=== PATIENT | female | born 1970 ===

== ENCOUNTER 2021-04-05 10:57 | Emergency (ER) | payer SELFPAY ==
[~2021-04-05] VITALS: Ht 162.6 cm; Wt 114.2 kg
[2021-04-05 11:04] VITALS: BP 125/91; TEMP 98.8
[2021-04-05 12:02] LABS: BASO % 0.5 % (0.0-2.0); EOS # 0.2 (0.0-0.7); EOS % 2.7 % (0-4.0); GRAN # 2.3 (1.4-6.5); GRAN % 38.7 % (42.2-75.2); HEMATOCRIT 39.2 % (37.0-47.0); HEMOGLOBIN 13.5 g/dl (12.5-16.0); LYMPH # 3.2 (1.2-3.4); LYMPH % 53.8 % (20.0-51.0); MEAN CELL VOLUME 88 fl (80.0-100.0); MEAN CORPUSCULAR HEMOGLOBIN 30 pg (27.0-31.0); MEAN CORPUSCULAR HGB CONC 34 g/dl (33.0-37.0); MEAN PLATELET VOLUME 10.1 fl (7.4-10.4); MONO # 0.2 (0.1-0.6); MONO % 4.1 % (1.7-9.3); PLATELET COUNT 253 K/mm3 (130-400); RED BLOOD COUNT 4.48 M/mm3 (4.10-5.30); REDCELL DISTRIBUTION WIDTH-CV 13.1 % (11.5-14.5)
[2021-04-05 12:18] LABS: ALBUMIN 4.1 gm/dL (3.5-5.0); BILIRUBIN,TOTAL 0.4 mg/dL (0.0-1.0); C-REACTIVE PROTEIN 1.3 mg/dL (0.0-0.9); CALCIUM 9.4 mg/dL (8.4-10.2); CREATININE, serum 0.26 (0.52-1.25); POTASSIUM 3.9 mmol/L (3.4-5.0); TOTAL PROTEIN 7.4 gm/dL (6.4-8.2)
[2021-04-05] MEDS ORDERED: DOXYCYCLINE 10100 MG PO (13:23)
[2021-04-05 13:30] VITALS: PULSE 88
== END 2021-04-05 13:30 | disposition home or self-care (01) ==
LOC: COL.ER 10:57
PROVIDERS: Nurse Practitioner
DX: S93.402A Sprain of unspecified ligament of left ankle, initial encounter (principal); E11.621 Type 2 diabetes mellitus with foot ulcer; X58.XXXA Exposure to other specified factors, initial encounter

== ENCOUNTER 2021-05-15 15:16 | Inpatient (IN) | payer SELFPAY ==
[~2021-05-15] VITALS: Ht 162.7 cm; Wt 97.7 kg
[~2021-05-15 15:16] MED LIST: DOXYCYCLINE 10100 MG PO
[2021-05-15 16:59] LABS: BASO % 0.2 % (0.0-2.0); EOS % 0.4 % (0-4.0); GRAN # 6.6 (1.4-6.5); GRAN % 78.3 % (42.2-75.2); LYMPH # 1.2 (1.2-3.4); MEAN CELL VOLUME 88 fl (80.0-100.0); MEAN CORPUSCULAR HGB CONC 33 g/dl (33.0-37.0); MEAN PLATELET VOLUME 10.7 fl (7.4-10.4); MONO # 0.6 (0.1-0.6); MONO % 6.5 % (1.7-9.3); PLATELET COUNT 413 K/mm3 (130-400); RED BLOOD COUNT 3.39 M/mm3 (4.10-5.30); REDCELL DISTRIBUTION WIDTH-CV 13.7 % (11.5-14.5)
[2021-05-15 17:03] LABS: HEMATOCRIT 29.8 % (37.0-47.0); HEMOGLOBIN 9.8 g/dl (12.5-16.0); MEAN CORPUSCULAR HEMOGLOBIN 29 pg (27.0-31.0)
[2021-05-15 17:54] LABS: ALBUMIN 3.3 gm/dL (3.5-5.0); BILIRUBIN,TOTAL 0.3 mg/dL (0.0-1.0); CALCIUM 8.2 mg/dL (8.4-10.2); CREATININE, serum 0.38 (0.52-1.25); POTASSIUM 3.7 mmol/L (3.4-5.0); TOTAL PROTEIN 6.9 gm/dL (6.4-8.2)
[2021-05-15 19:18] LABS: IRON,SERUM 11 ug/dL (35-150)
[2021-05-15 19:28] LABS: TOTAL IRON BINDING CAPACITY 211 ug/dL (265-497)
[2021-05-15 19:40] LABS: INR 1.4 (0.8-3.0); PROTHROMBIN TIME 15.4 SECONDS (9.7-12.8)
--- NOTE | 2021-05-15 23:00 | NUR ---
RECEIVED PATIENT FROM ED ON A CART.PATIENT IS AOX4.DENIES PAIN.PATIENT IS A SBA.A KNOWN DIABETIC NOT ON MEDS.PATIENTS STATES THAT SHE MANAGES DM WITH DIET.PATIENT HAS NO HOME MEDS.ADMISSION ORIENTATION DONE.PATIENT HAS AN ORDER FOR WOUND CULTURE.THE ULCER ON THE FOOT HAS A DRY SCAB.WOUND CULTURE SPECIMEN NOT OBTAINED.SAFETY MEASURES IN PLACE.NO OTHER NEEDS AT THIS TIME.
[2021-05-15 23:22] VITALS: BP 120/44; PULSE 92; TEMP 99.7
[2021-05-16 03:59] VITALS: BP 144/77; PULSE 93; TEMP 98.6
--- NOTE | 2021-05-16 05:06 | NUR ---
PATIENT HAD A CALM NIGHT.REPORTED OF PAIN.MEDS GIVEN PER OCT.SAFETY MEASURES IN PLACE.NO OTHER NEEDS AT THIS TIME.
[2021-05-16 07:30] LABS: BASO % 0.3 % (0.0-2.0); EOS # 0.1 (0.0-0.7); EOS % 1.1 % (0-4.0); GRAN # 4.5 (1.4-6.5); GRAN % 63.2 % (42.2-75.2); LYMPH # 1.9 (1.2-3.4); LYMPH % 26.9 % (20.0-51.0); MEAN CELL VOLUME 89 fl (80.0-100.0); MEAN CORPUSCULAR HGB CONC 32 g/dl (33.0-37.0); MONO # 0.6 (0.1-0.6); MONO % 7.9 % (1.7-9.3); PLATELET COUNT 371 K/mm3 (130-400); RED BLOOD COUNT 2.79 M/mm3 (4.10-5.30); REDCELL DISTRIBUTION WIDTH-CV 13.6 % (11.5-14.5)
[2021-05-16 07:33] LABS: HEMATOCRIT 24.8 % (37.0-47.0); MEAN CORPUSCULAR HEMOGLOBIN 29 pg (27.0-31.0)
[2021-05-16 07:41] LABS: CREATININE, serum 0.3 (0.52-1.25); POTASSIUM 3.7 mmol/L (3.4-5.0)
[2021-05-16 07:50] VITALS: BP 115/54; PULSE 85; TEMP 98.1
--- NOTE | 2021-05-16 07:50 | NUR ---
Patient in bed resting. Alert and oriented x 3. Assessment complete. Denies pain at this time. Edema and tenderness to left foot. Small scab over lateral aspect of ankle, scab noted to ball of foot. IV to left forarm. INT to right forarm without complications. Denies needs at this time.
--- NOTE | 2021-05-16 08:14 | NUR ---
Patient to MRI by wheelchair.
[2021-05-16 10:51] LABS: COLLECTION METHOD CLEAN CATCH
[2021-05-16 10:57] LABS: MUCOUS Present /lpf; PH 6 (5-8); URINE APPEARANCE Hazy; URINE BACTERIA None Seen /hpf; URINE BILIRUBIN Negative (NEGATIVE); URINE BLOOD 1+ (NEGATIVE); URINE COLOR Yellow; URINE GLUCOSE 3+ (NEGATIVE); URINE KETONE Negative (NEGATIVE); URINE LEUKOCYTE ESTERASE Trace (NEGATIVE); URINE NITRATE Negative (NEGATIVE); URINE PROTEIN(semi-quant) 2+ (NEGATIVE); URINE RBC 0-2 /hpf; URINE UROBILINOGEN Negative (NEGATIVE)
--- NOTE | 2021-05-16 11:33 | NUR ---
SW met with patient at b/s about her d/c plan/needs. Patient states she is self-pay and has no PCP. Patient shares an apartment in [place] with her ex- (Gilbert Millard). There is one step to enter and she uses a cane and/or a boot to ambulate; otherwise is independent with ADLs. She works part-time and uses [facility] for medications. She reports she has no difficulties affording or obtaining them. This worker discussed DPOA to complete while hospitalized and patient would like to designate her sister, Ora Estrella as her POA. Form was given to patient and will complete with patient when her sister arrives. Patient is also interested in designating a PCP. This worker contacted financial counselor, Robert, and she plans to see patient to begin the process. *Anticipate patient will d/c home
[2021-05-16 11:50] VITALS: BP 100/66; PULSE 95; TEMP 98.3
--- NOTE | 2021-05-16 12:03 | NUR ---
Contacted PICC team about picc line placement.
[2021-05-16 15:46] VITALS: BP 132/63; PULSE 86; TEMP 98.9
--- NOTE | 2021-05-16 18:24 | NUR ---
Patient doing well throughout the day. Has been up to restroom with SBA. PICC line with fluids and antibiotics infusing at this time. Patient denies pain at this time. Will report off to night auditor.
[2021-05-16 19:11] VITALS: BP 131/80; PULSE 133; TEMP 98.3
--- NOTE | 2021-05-16 21:30 | NUR ---
Pt. sitting up in bed at this time. Pt. is A&OX3, assessment complete. PICC to rt. upper arm patent, IV fluids and abx. infusing per orders. Pt. denies pain or other needs, call light within reach.
[2021-05-17] VITALS (7 sets, daily range): BP systolic 103–146; BP diastolic 68–90; PULSE 50–143; TEMP 97.9–981.4
--- NOTE | 2021-05-17 18:27 | NUR ---
Patient doing well throughout the day. Denies pain at this time. Patient up independently to restroom. Denies further needs at this time. Will report off to type rolling machine operator.
--- NOTE | 2021-05-17 20:50 | NUR ---
Pt. sitting up at bedside at this time. Pt. is A&OX3, assessment complete. PICC to rt. upper arm patent. Pt. reports pain to lt. foot at a 6 on pain scale at this time. Giving pain meds per orders. Pt. denies further needs, call light within reach.
[2021-05-18] VITALS (8 sets, daily range): BP systolic 90–128; BP diastolic 59–89; PULSE 62–142; TEMP 98–98.5
[2021-05-18 07:48] LABS: BASO % 0.4 % (0.0-2.0); EOS # 0.1 (0.0-0.7); EOS % 1.3 % (0-4.0); GRAN # 4.8 (1.4-6.5); GRAN % 64.7 % (42.2-75.2); LYMPH # 1.9 (1.2-3.4); LYMPH % 25.1 % (20.0-51.0); MEAN CELL VOLUME 92 fl (80.0-100.0); MEAN CORPUSCULAR HGB CONC 32 g/dl (33.0-37.0); MEAN PLATELET VOLUME 10.3 fl (7.4-10.4); MONO # 0.6 (0.1-0.6); MONO % 8.2 % (1.7-9.3); PLATELET COUNT 410 K/mm3 (130-400); RED BLOOD COUNT 2.75 M/mm3 (4.10-5.30); REDCELL DISTRIBUTION WIDTH-CV 14.2 % (11.5-14.5)
[2021-05-18 07:55] LABS: HEMATOCRIT 25.3 % (37.0-47.0); MEAN CORPUSCULAR HEMOGLOBIN 29 pg (27.0-31.0)
[2021-05-18 08:06] LABS: CALCIUM 7.9 mg/dL (8.4-10.2); CREATININE, serum 1.4 (0.52-1.25); POTASSIUM 4.2 mmol/L (3.4-5.0)
--- NOTE | 2021-05-18 10:00 | NUR ---
Patient alert and oriented, answers questions appropriately. See assessment. LLE with redness, warmth and edema noted from toes to knee. Localized area of increased redness and edema noted to heel, skin intact. Patient states has some pain to LLE, but mostly when she doesn't have it elevated, otherwise has no pain. No c/o at this time.
--- NOTE | 2021-05-18 21:10 | NUR ---
Pt. sitting up in bed. Pt. is A&OX3, assessment complete. PICC to rt. upper arm patent. Pt. reports pain at a 6 on pain scale, will give pain meds per orders. Pt. also having dry heaves and feels a bit nauseous. Will give nausea meds per orders. Pt. denies further needs, call light within reach.
[2021-05-19 03:37] VITALS: BP 113/82; PULSE 86; TEMP 97.9
[2021-05-19 04:52] LABS: BASO % 0.6 % (0.0-2.0); EOS # 0.1 (0.0-0.7); EOS % 1.6 % (0-4.0); GRAN # 4.3 (1.4-6.5); GRAN % 62.2 % (42.2-75.2); LYMPH % 28.2 % (20.0-51.0); MEAN CELL VOLUME 89 fl (80.0-100.0); MEAN CORPUSCULAR HGB CONC 32 g/dl (33.0-37.0); MEAN PLATELET VOLUME 9.6 fl (7.4-10.4); MONO # 0.5 (0.1-0.6); PLATELET COUNT 445 K/mm3 (130-400); RED BLOOD COUNT 3.12 M/mm3 (4.10-5.30); REDCELL DISTRIBUTION WIDTH-CV 14.2 % (11.5-14.5)
[2021-05-19 04:54] LABS: HEMATOCRIT 27.8 % (37.0-47.0); MEAN CORPUSCULAR HEMOGLOBIN 29 pg (27.0-31.0)
[2021-05-19 05:11] LABS: CALCIUM 7.2 mg/dL (8.4-10.2); CREATININE, serum 1.85 (0.52-1.25); POTASSIUM 4.1 mmol/L (3.4-5.0)
[2021-05-19 07:33] VITALS: BP 100/83; PULSE 121; TEMP 97.6
--- NOTE | 2021-05-19 08:00 | NUR ---
Patient in bed resting. Alert and oriented x 3. Assessment complete. Patient denies pain at this time. States she is having mild nausea this AM, no emisis. Edema to RLE +2 pitting. Patient states leg is looking better than prevoius days. Patient denies additional needs at this time.
--- NOTE | 2021-05-19 09:49 | NUR ---
Contacted Yanelis Beth RE weight bearing status and using boot. Recomended NWB to right foot but if patient is going to be up and moving must wear boot. Updated PT.
[2021-05-19 12:15] VITALS: BP 106/75; PULSE 85; TEMP 97.8
--- NOTE | 2021-05-19 15:20 | NUR ---
The PA notified BETSY that the patient is going to need 6 weeks of IV antibiotics. IV Vanc and Cefepime, twice a day. The patient will also need primary care and PT is recommending a wheelchair. The patient is self pay. BETSY met with the patient to review d/c plans and to address the above. The patient states that she plans on returning back home with her ex-. The patient is agreeable with getting the IV antibiotics in the [facility], due to being self pay. The patient states that she will have transporation to the [facility]. She reports that she still drives and that her sister and ex- can also help, if needed. BETSY notified Jed in the [facility]. Jed plans to start an account on the patient for her to start her antibiotics in the [facility] on Wednesday. The patient was open to getting set up at [facility] for primary care. BETSY contacted and secured the patient an appointment at [facility] on Wednesday, 05/26, at 0840. The patient will need to go to [facility] prior to her appointment to cigar packer and picker their paperwork to fill out. BETSY to inform the patient. BETSY notified the community relations director of the appointment. BETSY also discussed PT's recommendation for a wheelchair. The patient states that she plans on going back to work at [employer] upon discharge, so will not use a wheelchair there. She reports that she has one step to get into her home and would not be able to get the wheelchair up that. The patient reports that her boot will keep her protected. She reports that her father has crutches and a wheelchair that she can use, if needed. BETSY discussed speaking to her landlord about installing a wheelchair ramp. The patient states that she will talk to her landlord about this. The patient had no other questions or concerns for BETSY. BETSY will need to fax the patient's records and orders to [facility].
[2021-05-19 16:05] VITALS: BP 105/66; PULSE 85; TEMP 97.8
--- NOTE | 2021-05-19 19:04 | NUR ---
Patient doing well today, showered independently. Educated patient on use of cam boot when she is up out of bed. Picc line with fluids infusing per orders to SHEREEN. Pain medications given this afternoon for foot pain. Denies further needs at this time. Reported off to rn shift mgr.
[2021-05-19 19:40] VITALS: BP 103/62; PULSE 67; TEMP 98.2
[2021-05-20 03:21] LABS: MEAN CELL VOLUME 90 fl (80.0-100.0); MEAN CORPUSCULAR HGB CONC 32 g/dl (33.0-37.0); MEAN PLATELET VOLUME 9.7 fl (7.4-10.4); RED BLOOD COUNT 3.29 M/mm3 (4.10-5.30); REDCELL DISTRIBUTION WIDTH-CV 14.4 % (11.5-14.5)
[2021-05-20 03:22] LABS: HEMATOCRIT 29.5 % (37.0-47.0); HEMOGLOBIN 9.3 g/dl (12.5-16.0); MEAN CORPUSCULAR HEMOGLOBIN 28 pg (27.0-31.0); PLATELET COUNT 554 K/mm3 (130-400)
[2021-05-20 03:33] LABS: CALCIUM 7.7 mg/dL (8.4-10.2); CREATININE, serum 2.2 (0.52-1.25); POTASSIUM 4.3 mmol/L (3.4-5.0)
[2021-05-20 05:00] VITALS: BP 106/74; TEMP 98.1
[2021-05-20 07:48] VITALS: BP 104/69; PULSE 90; TEMP 97.6
--- NOTE | 2021-05-20 08:00 | NUR ---
Patient in sitting on edge of bed. Alert and oriented x 3. Assessment complete. Denies pain at this time. CAM boot to LLE. Patient states she would like to talk to ortho about amputation again today, notified Yanelis CHAPMAN. PICC line to SHEREEN without complications, fluids infusing per orders. Denies further needs at this time.
[2021-05-20 11:19] LABS: COLLECTION METHOD CLEAN CATCH
[2021-05-20 11:44] LABS: MUCOUS Present /lpf; PH 6 (5-8); SQUAMOUS EPITHELIAL None Seen /hpf; URINE APPEARANCE Cloudy; URINE BACTERIA None Seen /hpf; URINE BILIRUBIN Negative (NEGATIVE); URINE BLOOD 1+ (NEGATIVE); URINE COLOR Yellow; URINE GLUCOSE Negative (NEGATIVE); URINE KETONE Negative (NEGATIVE); URINE LEUKOCYTE ESTERASE 3+ (NEGATIVE); URINE NITRATE Positive (NEGATIVE); URINE PROTEIN(semi-quant) Negative (NEGATIVE); URINE UROBILINOGEN Negative (NEGATIVE)
[2021-05-20 11:50] VITALS: BP 101/72; PULSE 58; TEMP 98
[2021-05-20 16:00] VITALS: BP 127/98; PULSE 90; TEMP 97.8
--- NOTE | 2021-05-20 16:49 | NUR ---
Contacted oJdi WOOD, unable to collect fractionated urine due to patient not voiding since early this AM. Concern for decreased urine output. Hat placed in toilet to collect urine this AM. Will monitor.
--- NOTE | 2021-05-20 17:20 | NUR ---
Contacted Dr. Wilhelm, Bladder scanned patient for >700 ml of urine. New order for straight cath.
--- NOTE | 2021-05-20 18:06 | NUR ---
Patient doing well throughout the day. Has been up to restroom independently with cam boot in place. PICC line with fluids infusing at this time. Patient was able to void at this time. Denies further needs at this time.
--- NOTE | 2021-05-20 18:08 | NUR ---
Will report off to cnc machinist 2nd shift.
[2021-05-20 18:13] LABS: CREATININE, serum 2.45 (0.52-1.25)
[2021-05-20 18:51] LABS: FRACTIONAL EXCRETION OF NA+ 0.6 %
[2021-05-20 18:56] VITALS: BP 108/59; PULSE 108; TEMP 98.7
[2021-05-21] VITALS (11 sets, daily range): BP systolic 93–131; BP diastolic 59–101; PULSE 61–120; TEMP 97.7–98.8
[2021-05-21 05:52] LABS: HEMATOCRIT 27.5 % (37.0-47.0); HEMOGLOBIN 8.7 g/dl (12.5-16.0); MEAN CELL VOLUME 90 fl (80.0-100.0); MEAN CORPUSCULAR HEMOGLOBIN 29 pg (27.0-31.0); MEAN CORPUSCULAR HGB CONC 32 g/dl (33.0-37.0); MEAN PLATELET VOLUME 9.8 fl (7.4-10.4); PLATELET COUNT 430 K/mm3 (130-400); RED BLOOD COUNT 3.05 M/mm3 (4.10-5.30); REDCELL DISTRIBUTION WIDTH-CV 14.5 % (11.5-14.5)
[2021-05-21 06:07] LABS: CALCIUM 7.5 mg/dL (8.4-10.2); CREATININE, serum 2.43 (0.52-1.25); POTASSIUM 4.5 mmol/L (3.4-5.0)
--- NOTE | 2021-05-21 07:00 | NUR ---
Report received from program proposals coordinator nurse. Pt resting in bed, denies needs, will continue to monitor.
--- NOTE | 2021-05-21 07:46 | NUR ---
Assessment charted. Pt nauseated, states for last 3 days this has happenedi n am then it subsides. PRN nausea and pain pill provided. PICC to SHEREEN flushes well and good blood return. Pt is alert and oriented, discussed POC and pt wants to pursue antibiotics for now. LLE red, heel ucler is inflammed and area is scabbed. pain is 7/10 to heel. Will continue to monitor.
--- NOTE | 2021-05-21 09:42 | NUR ---
Upon assessing this am noticed HR fast and irregular, called hospitalist Saray and recieved orders for EKG and telemetry. Called RT, EKG completed and shown to me as Afib RVR, walked to Saray and showed results. Consulted cardiology, called Eneida LICEA with [place]. Spoke to and explained situation, IV metropolol order recieved. Gave meds and explained what is going on with pt, she states she has no s/sx of this. Will continue to monitor.
[2021-05-21 14:43] LABS: PARTIAL THROMBOPLASTIN TIME 33.7 SECONDS (26.0-37.0)
--- NOTE | 2021-05-21 18:09 | NUR ---
Pt up to shower today. Has voided in the shower and once in the toilet after removing hat in toilet because they thought they would have a BM. Pt given PRN pain meds per request over shift. REsting quietly between disturbances. Discussed plan for NPO p midnight and SUSANA/Cardioversion tomorrow. Pt agreeaable. Will give bedside shift report to [facility] nurse who will resuem care.
--- NOTE | 2021-05-21 21:19 | NUR ---
PATIENT IS CALM IN THE ROOM ON HEPARIN DRIP.DENIES PAIN.ASSESSMENT DONE.SAFETY MEASURES IN PLACE.NO OTHER NEEDS AT THIS TIME.
[2021-05-22] VITALS (14 sets, daily range): BP systolic 103–141; BP diastolic 52–98; PULSE 74–143; TEMP 97.4–98.1
--- NOTE | 2021-05-22 03:07 | NUR ---
PATIENT'SMHR RANGING FROM 120-140B/M.NIGHT PROVIDER ORDERED METOPROLOL 50MG STAT SAME GIVEN.
--- NOTE | 2021-05-22 04:47 | NUR ---
PATIENT IS CALM IN THE ROOM.ON TELEMETRY HR NOW ON THE LOW 100S. PATIENT IS NPO FOR SUSANA CARDIOVERSION TODAY.
[2021-05-22 07:27] LABS: MEAN CELL VOLUME 93 fl (80.0-100.0); MEAN CORPUSCULAR HGB CONC 31 g/dl (33.0-37.0); MEAN PLATELET VOLUME 9.9 fl (7.4-10.4); PLATELET COUNT 456 K/mm3 (130-400); RED BLOOD COUNT 3.14 M/mm3 (4.10-5.30); REDCELL DISTRIBUTION WIDTH-CV 14.7 % (11.5-14.5)
[2021-05-22 07:32] LABS: CALCIUM 7.6 mg/dL (8.4-10.2); CREATININE, serum 2.44 (0.52-1.25); MAGNESIUM 2.4 mg/dL (1.6-2.3); POTASSIUM 4.8 mmol/L (3.4-5.0)
[2021-05-22 07:39] LABS: HEMATOCRIT 29.3 % (37.0-47.0); MEAN CORPUSCULAR HEMOGLOBIN 29 pg (27.0-31.0)
--- NOTE | 2021-05-22 09:26 | NUR ---
Pt assessment complete. Pt is sitting up on the side of the bed, she is A/O x4. Her breathing is even and unlabored on RA. Pt denies any SOB. No chest pain or palpitations. POC discussed with patient, she verbalizes understanding. Reports back pain at this time. PRN pain medications administered. Heparin drip infusing per protocol. Call light within reach.
--- NOTE | 2021-05-22 13:08 | NUR ---
The patient will be having her IV antibiotics in the morning. BETSY contacted Fanny in [place] and rescheduled the patient's appointment for 1420 on 05/26. BETSY notified the ammunition components inspector. BETSY followed up with Dinora with financial counseling. Dinora reports that they will be doing a FAA and Medicaid application with the patient. The patient is to have a SUSANA with cardiology today. BETSY to continue to follow.
--- NOTE | 2021-05-22 18:19 | NUR ---
Pt requesting to talk with a doctor, states she wants to move forward with surgery on her foot. Discussed this with Dr. Neal, she reports ADELA Hilario will round on patient tomorrow and orders to hold Warfarin tonight, continue with heparin drip. No further needs at this time. Call light within reach.
--- NOTE | 2021-05-22 21:40 | NUR ---
HEPARIN GTT PAUSED @ 2114 R/T HEP XA. BLOOD DRAWN FROM PICC LINE @ 2129. HEPARIN GTT RESTARTED.
[2021-05-23 03:26] VITALS: BP 139/88; PULSE 74; TEMP 97.8
--- NOTE | 2021-05-23 04:30 | NUR ---
HEPARIN GTT PAUSED FOR 15 MINUTES. BLOOD DRAWN FROM PICC LINE FOR LABS. PICC LINE FLUSHES EASILY, BRISK BLOOD RETURN FROM [place]. HEPARIN GTT RESTARTED.
[2021-05-23 04:44] LABS: HEMATOCRIT 28.4 % (37.0-47.0); MEAN CELL VOLUME 90 fl (80.0-100.0); MEAN CORPUSCULAR HEMOGLOBIN 28 pg (27.0-31.0); MEAN CORPUSCULAR HGB CONC 32 g/dl (33.0-37.0); MEAN PLATELET VOLUME 9.3 fl (7.4-10.4); PLATELET COUNT 409 K/mm3 (130-400); RED BLOOD COUNT 3.17 M/mm3 (4.10-5.30); REDCELL DISTRIBUTION WIDTH-CV 14.8 % (11.5-14.5)
[2021-05-23 04:56] LABS: INR 1.2 (0.8-3.0); PROTHROMBIN TIME 13.8 SECONDS (9.7-12.8)
[2021-05-23 05:00] LABS: CALCIUM 8.5 mg/dL (8.4-10.2); CREATININE, serum 2.58 mg/dL (0.57-1.11); MAGNESIUM 2.4 mg/dL (1.6-2.6); POTASSIUM 4.7 mmol/L (3.5-4.5)
--- NOTE | 2021-05-23 05:40 | NUR ---
CAPS ON PICC LINE CHANGED ET HEPARIN BOLUS GIVEN PER PROTOCOL. BOTH RED ET PURPLE PORTS FLUSH EASILY WITH BRISK BLOOD RETURN. PT DENIES NEEDS @ THIS TIME. CALL LIGHT WITHIN REACH.
[2021-05-23 07:40] VITALS: BP 151/93; PULSE 72; TEMP 97.5
--- NOTE | 2021-05-23 07:53 | NUR ---
Pt assessment complete. Pt is laying in bed upon entry, she is A/O x4. Her breathing is even and unlabored on RA. Pt denies SOB. Pain to back, states this is from laying in bed for too long. NO N/V. POC discussed with patient, surgery to be on Wednesday. No further needs at this time. Call light within reach.
--- NOTE | 2021-05-23 09:55 | NUR ---
BETSY attended clinical rounds. The patient has decided to pursue with the BKA. Ortho plans to take the patient to surgery Wednesday afternoon. The patient is self pay. BETSY consulted IPR Director, Raegan.
[2021-05-23 12:07] VITALS: BP 121/65; PULSE 68; TEMP 98.2
--- NOTE | 2021-05-23 15:50 | NUR ---
Recently received report from VINAYAK Mata. pt resting in bed denies any needs at this time
[2021-05-23 16:12] VITALS: BP 124/79; PULSE 72; TEMP 97.4
[2021-05-23 19:21] VITALS: BP 136/69; PULSE 76; TEMP 98.2
--- NOTE | 2021-05-23 23:02 | NUR ---
PT TELLS THIS NURSE THAT HER SISTER ET HER EX- ARE PLANNING TO COME SEE HER ON WEDNESDAY. EXPLAINED VISITOR POLICY TO PT, IS AGREEABLE TO ONLY HAVING ONE VISIOR. PT STATES THAT ANOTHER DAY THIS PAST WEEK, HER EX- HAD TOLD HER THAT WHEN HE TRIED TO COME SEE HER, THEY WOULDN'T LET HIM COME TO HER ROOM. PT'S EX , ELENA HAQUE IS LISTED PT'S DESIGNATED VISITOR, PT IS TOLD THIS, VERBALIZES UNDERSTANDING. DENIES OTHER NEEDS @ THIS TIME.
[2021-05-23 23:17] VITALS: BP 136/67; PULSE 77; TEMP 98.4
--- NOTE | 2021-05-24 01:36 | NUR ---
BLOOD DRAWN FROM PICC LINE FOR HEP XA LAB. PT RATES PAIN 9/10 WHILE LAYING IN BED. PAIN PILL ADMINISTERED. DENIES OTHER NEEDS. CALL LIGHT WITHIN REACH.
[2021-05-24 03:47] VITALS: BP 152/79; PULSE 88; TEMP 98.5
--- NOTE | 2021-05-24 05:30 | NUR ---
PT IS AWAKENED FOR BLOOD TO BE DRAWN FROM PICC FOR LABS. PT REQUIRES ASSISTANCE TO SIT UP ON EDGE OF BED. WHEN SHE IS SITTING UP, BEGINS DRY HEAVING. PT STATES THAT THIS IS NORMAL FOR HER IF SHE DOESN'T DRINK ENOUGH. ZOFRAN ADMINISTERED IV. PT IS OTHERWISE PLEASANT ET COOPERATIVE, LAUGHS WITH STAFF. DENIES ANY OTHER NEEDS @ THIS TIME. CALL LIGHT WITHIN REACH.
[2021-05-24 07:16] LABS: BASO % 0.6 % (0.0-2.0); EOS # 0.3 (0.0-0.7); EOS % 3.6 % (0-4.0); GRAN # 3.9 (1.4-6.5); GRAN % 56.2 % (42.2-75.2); LYMPH # 2.2 (1.2-3.4); LYMPH % 31.9 % (20.0-51.0); MEAN CELL VOLUME 93 fl (80.0-100.0); MEAN CORPUSCULAR HGB CONC 31 g/dl (33.0-37.0); MEAN PLATELET VOLUME 9.8 fl (7.4-10.4); MONO # 0.5 (0.1-0.6); PLATELET COUNT 386 K/mm3 (130-400); RED BLOOD COUNT 3.14 M/mm3 (4.10-5.30); REDCELL DISTRIBUTION WIDTH-CV 14.9 % (11.5-14.5)
[2021-05-24 07:21] LABS: HEMATOCRIT 29.2 % (37.0-47.0); HEMOGLOBIN 8.9 g/dl (12.5-16.0); MEAN CORPUSCULAR HEMOGLOBIN 28 pg (27.0-31.0)
[2021-05-24 07:35] LABS: CALCIUM 8.5 mg/dL (8.4-10.2); CREATININE, serum 2.46 mg/dL (0.57-1.11); MAGNESIUM 2.4 mg/dL (1.6-2.6)
[2021-05-24 07:44] VITALS: BP 123/55; PULSE 71; TEMP 98.1
--- NOTE | 2021-05-24 08:00 | NUR ---
Patient sitting up on edge of bed. Alert and oriented x 3. Assessment complete. Denies pain at this time. Edema to BLE +2. PICC line to SHEREEN without complcations. Patient denies furhter needs at this time.
--- NOTE | 2021-05-24 08:50 | NUR ---
Hep xa at 0.40 decreased rate per protocol to 25.5. Denies needs needs at this time.
[2021-05-24 11:39] VITALS: BP 133/72; PULSE 74; TEMP 98.3
--- NOTE | 2021-05-24 15:00 | NUR ---
Hep xa at .47 decreased rate at this time. recheck at 2030
[2021-05-24 15:57] VITALS: BP 137/61; PULSE 73; TEMP 98.4
--- NOTE | 2021-05-24 18:10 | NUR ---
Patient has done well througout the day. Denies pain. Heparin infusing per orders. Patient denies needs at this time. Will report off to shift mgr.
[2021-05-24 20:05] VITALS: BP 133/56; PULSE 75; TEMP 98.9
--- NOTE | 2021-05-24 20:30 | NUR ---
HEP XA=0.23, INCREASED RATE TO 46CC/HR, RECHECK HEP XA AT 0300.
--- NOTE | 2021-05-24 21:07 | NUR ---
MEDICATED WITH HS MEDS INCLUDING NORCO FOR LEFT LEG PAIN. HAS SIGNIFICANT SWELLING OF LLL INTO FOOT. REPORTS GOOD SENSATION. ABD OBESE, SOFT. HAS HEPARIN GTT TO RT PICC INFUSING AT 26CC/HR.
[2021-05-24 23:39] VITALS: BP 124/67; PULSE 74; TEMP 98
--- NOTE | 2021-05-25 03:00 | NUR ---
HEP XA DRAWN FROM [facility]. PT RESTING WELL.
[2021-05-25 03:30] VITALS: BP 154/83; PULSE 76; TEMP 98.3
--- NOTE | 2021-05-25 04:00 | NUR ---
HEP XA LOW AT 0.02. HEP BOLUS OF 1000 UNITS AND INCREASED RATE TO 28.5CC/HR.
--- NOTE | 2021-05-25 05:00 | NUR ---
NOTIFIED PACO YI OF HEPARIN DOSE, NO NEW ORDERS.
--- NOTE | 2021-05-25 06:00 | NUR ---
TAKES SCHEDULED AM MED. NO CONCERNS VOICED.
[2021-05-25 07:20] LABS: MEAN CELL VOLUME 90 fl (80.0-100.0); MEAN CORPUSCULAR HGB CONC 32 g/dl (33.0-37.0); MEAN PLATELET VOLUME 9.6 fl (7.4-10.4); PLATELET COUNT 364 K/mm3 (130-400); RED BLOOD COUNT 3.09 M/mm3 (4.10-5.30); REDCELL DISTRIBUTION WIDTH-CV 14.8 % (11.5-14.5)
[2021-05-25 07:28] LABS: HEMATOCRIT 27.7 % (37.0-47.0); HEMOGLOBIN 8.8 g/dl (12.5-16.0); MEAN CORPUSCULAR HEMOGLOBIN 28 pg (27.0-31.0)
[2021-05-25 08:00] VITALS: BP 143/94; PULSE 85; TEMP 98.3
[2021-05-25 10:42] LABS: CALCIUM 7.9 mg/dL (8.4-10.2); CREATININE, serum 2.37 mg/dL (0.57-1.11); MAGNESIUM 2.4 mg/dL (1.6-2.6); POTASSIUM 5.3 mmol/L (3.5-4.5)
[2021-05-25 12:00] VITALS: BP 137/72; PULSE 73; TEMP 98.2
[2021-05-25 15:44] VITALS: BP 134/95; PULSE 74; TEMP 97.7
[2021-05-25 19:16] VITALS: BP 144/72; PULSE 71; TEMP 98.5
--- NOTE | 2021-05-25 20:36 | NUR ---
PT IN BED, DROWSY. TAKES HS MEDS INCLUDING NORCO FOR LEFT LEG PAIN. HAS SWELLING AND REDNESS TO LLE. IS AWARE OF NPO AFTER MIDNIGHT STATUS, SURGERY TOMORROW. HAS RT PICC, HEP GTT INFUSING WITHOUT PROBLEM.
[2021-05-25 23:05] VITALS: BP 151/75; PULSE 73; TEMP 98.5
[2021-05-26] VITALS (12 sets, daily range): BP systolic 137–164; BP diastolic 64–83; PULSE 63–76; TEMP 97.4–98.2
--- NOTE | 2021-05-26 | NUR ---
NPO FOR SURGERY.
--- NOTE | 2021-05-26 01:30 | NUR ---
HEP XA RESULTED AT 0.22, INCREASED RATE TO 1900U/HR AT THIS TIME. WILL RECHECK HEP XA AT 0730.
--- NOTE | 2021-05-26 05:36 | NUR ---
REPORTS NAUSEA, ZOFRAN 4MG IVP GIVEN. HAS BEEN NPO. TAKES SCHEDULED AM MED WITH SIP OF WATER.
[2021-05-26 06:57] LABS: BASO # 0.1 (0.0-0.2); BASO % 0.9 % (0.0-2.0); EOS # 0.2 (0.0-0.7); EOS % 3.3 % (0-4.0); GRAN % 52.6 % (42.2-75.2); LYMPH % 34.9 % (20.0-51.0); MEAN CELL VOLUME 89 fl (80.0-100.0); MEAN CORPUSCULAR HGB CONC 32 g/dl (33.0-37.0); MEAN PLATELET VOLUME 9.5 fl (7.4-10.4); MONO # 0.4 (0.1-0.6); MONO % 7.6 % (1.7-9.3); PLATELET COUNT 323 K/mm3 (130-400); RED BLOOD COUNT 3.12 M/mm3 (4.10-5.30); REDCELL DISTRIBUTION WIDTH-CV 14.7 % (11.5-14.5)
[2021-05-26 07:00] LABS: HEMATOCRIT 27.9 % (37.0-47.0); HEMOGLOBIN 8.9 g/dl (12.5-16.0); MEAN CORPUSCULAR HEMOGLOBIN 29 pg (27.0-31.0)
[2021-05-26 09:01] LABS: CALCIUM 8.4 mg/dL (8.4-10.2); CREATININE, serum 2.55 mg/dL (0.57-1.11); POTASSIUM 4.9 mmol/L (3.5-4.5)
--- NOTE | 2021-05-26 12:52 | NUR ---
Initial visit; Patient thanked for stopping by and wishing her well.
--- NOTE | 2021-05-26 13:26 | NUR ---
The patient is to have BKA today. BETSY attempted to contact [facility]anny in to cancel her appointment that was scheduled there today. The phone call would be disconnected. BETSY then contacted the Fanny in [facility]. The sales receptionist reports that she is able to get in contact with the clinic and will have them cancel the appointment. SW to reshedule her appointment at [facility] in when a tentative discharge date is known. BETSY then met with the patient to follow up before the surgery and inquired about a DPOA-HC. The patient states that she is doing alright. She reports that she does not have a DPOA-HC, but would like to complete one. BETSY provided the form. The patient designated her sister, Tiesha Estrella (ph#[phone]). BETSY and RN, Mili, witnessed the patient's signature. BETSY provided the patient with the original and some copies. BETSY placed a copy in the patient's chart. BETSY to continue to follow.
--- NOTE | 2021-05-26 13:50 | NUR ---
Pt off the floor for surgery
--- NOTE | 2021-05-26 17:47 | NUR ---
cARES RESUMED FOR PATIENT BY THIS NURSE. PT ARRIVED TO FLOOR 1740 FROM SURGERY. PT A&O, ON ROOM AIR, SATTING WELL, POST OP VITALS MONITORING IN PROGRESS. PT RECEIVED PAIN MEDICATION AND NAUSEA MEDS PRIOR TO RETURNING TO FLOOR. ICE CHIPS PROVIDED. LLE HAS PENNY WRAP AND KNEE IMMOBILIZER IN PLACE. NEUROS WNL. NO FURTHER NEEDS EXPRESSED.
--- NOTE | 2021-05-26 21:00 | NUR ---
Pt. sitting up in bed. Pt. is A&OX3, assessment complete. PICC to rt. upper arm patent. Pt. reports pain to lt. BKA at a 7 on pain scale at this time. Will give pain meds per orders. Pt. repostioned for comfort. Pt. denies further needs, call light within reach.
[2021-05-27] VITALS (7 sets, daily range): BP systolic 127–159; BP diastolic 59–85; PULSE 65–85; TEMP 97.7–99.4
[2021-05-27 06:50] LABS: BASO % 0.5 % (0.0-2.0); EOS % 0.6 % (0-4.0); GRAN # 4.1 (1.4-6.5); GRAN % 64.5 % (42.2-75.2); LYMPH # 1.6 (1.2-3.4); LYMPH % 25.8 % (20.0-51.0); MEAN CELL VOLUME 92 fl (80.0-100.0); MEAN CORPUSCULAR HGB CONC 31 g/dl (33.0-37.0); MEAN PLATELET VOLUME 9.8 fl (7.4-10.4); MONO # 0.5 (0.1-0.6); MONO % 8.1 % (1.7-9.3); PLATELET COUNT 294 K/mm3 (130-400); RED BLOOD COUNT 2.96 M/mm3 (4.10-5.30); REDCELL DISTRIBUTION WIDTH-CV 14.6 % (11.5-14.5)
[2021-05-27 06:53] LABS: HEMATOCRIT 27.3 % (37.0-47.0); HEMOGLOBIN 8.5 g/dl (12.5-16.0); MEAN CORPUSCULAR HEMOGLOBIN 29 pg (27.0-31.0)
[2021-05-27 07:28] LABS: CALCIUM 8.5 mg/dL (8.4-10.2); CREATININE, serum 2.49 mg/dL (0.57-1.11)
--- NOTE | 2021-05-27 08:00 | NUR ---
Patient in bed resting. Alert and oriented x 3. Assessment complete. Denies pain at this time. LLE with acewrap is CDI. Patient denies further needs at this time.
[2021-05-27 08:17] LABS: INR 1.3 (0.8-3.0); PROTHROMBIN TIME 13.9 SECONDS (9.7-12.8)
--- NOTE | 2021-05-27 18:57 | NUR ---
Patient doing well throughout the day, has been up to BSC with x2-3 assist. Pain medications given this afternoon for LLE pain. Patient denies needs at this time. Will report off to plant operator/shift supervisor.
--- NOTE | 2021-05-27 22:07 | NUR ---
Patient assessed around 2104. Reported pain to [facility] surgical site, and given PRN Roxicodone as requested. Dressing and imobilizer to LLE CDI. 2+ edema RLE. PICC to RUE. HepXa drawn per orders. PICC hard to flush, with slow blood return. Increased Heparin drip per protocol, will recheck at 329. Patient voices no questions, needs, or concerns at this time. Resting in bed with call light within reach. Repositioned in bed.
--- NOTE | 2021-05-27 23:42 | NUR ---
Order put in to hold Heparin drip. Called ADELA Farias and clarified that it is to be on hold. Placed on hold at this time.
[2021-05-28 03:07] VITALS: BP 148/83; PULSE 66; TEMP 98.2
--- NOTE | 2021-05-28 05:59 | NUR ---
Patient has been resting in bed with call light within reach. Repositioned in bed as requested. Received pain medication per orders. Heparin drip remain on hold until ortho confirms if they want both Heparin and Coumadin, or just Coumadin. Patient voices no questions, needs, or concerns at this time. Resting in bed with call light within reach.
[2021-05-28 07:19] LABS: COLLECTION METHOD CLEAN CATCH
[2021-05-28 07:26] LABS: BASO % 0.6 % (0.0-2.0); EOS # 0.1 (0.0-0.7); GRAN # 3.5 (1.4-6.5); GRAN % 55.6 % (42.2-75.2); LYMPH # 2.1 (1.2-3.4); LYMPH % 33.2 % (20.0-51.0); MEAN CELL VOLUME 92 fl (80.0-100.0); MEAN CORPUSCULAR HGB CONC 31 g/dl (33.0-37.0); MEAN PLATELET VOLUME 9.4 fl (7.4-10.4); MONO # 0.5 (0.1-0.6); PLATELET COUNT 260 K/mm3 (130-400); RED BLOOD COUNT 3.07 M/mm3 (4.10-5.30); REDCELL DISTRIBUTION WIDTH-CV 14.5 % (11.5-14.5)
[2021-05-28 07:27] LABS: HEMATOCRIT 28.1 % (37.0-47.0); HEMOGLOBIN 8.7 g/dl (12.5-16.0); MEAN CORPUSCULAR HEMOGLOBIN 28 pg (27.0-31.0)
[2021-05-28 07:40] VITALS: BP 134/61; PULSE 68; TEMP 98.3
[2021-05-28 07:44] LABS: BUDDING YEAST Present /hpf; MUCOUS Present /lpf; PH 6 (5-8); URINE APPEARANCE Hazy; URINE BACTERIA Rare /hpf; URINE BILIRUBIN Negative (NEGATIVE); URINE BLOOD 2+ (NEGATIVE); URINE COLOR Straw; URINE GLUCOSE Negative (NEGATIVE); URINE KETONE Negative (NEGATIVE); URINE LEUKOCYTE ESTERASE Trace (NEGATIVE); URINE NITRATE Negative (NEGATIVE); URINE PROTEIN(semi-quant) 1+ (NEGATIVE); URINE RBC 0-2 /hpf; URINE UROBILINOGEN Negative (NEGATIVE)
[2021-05-28 07:46] LABS: CALCIUM 8.5 mg/dL (8.4-10.2); CREATININE, serum 2.48 mg/dL (0.57-1.11); MAGNESIUM 2.2 mg/dL (1.6-2.6); POTASSIUM 4.8 mmol/L (3.5-4.5)
[2021-05-28 07:47] LABS: CREATININE, serum 2.48 (0.52-1.25)
[2021-05-28 07:54] LABS: FRACTIONAL EXCRETION OF NA+ 4.4 %
[2021-05-28 08:27] LABS: INR 1.3 (0.8-3.0); PROTHROMBIN TIME 13.9 SECONDS (9.7-12.8)
--- NOTE | 2021-05-28 09:48 | NUR ---
PT UP TO RECLINER FOR BREAKFAST WITH SIT TO STAND LIFT AND MUCH EFFORT FROM THEARPY. PLAN ON TRANSFER TO [facility] LATER TODAY OR TOMMORROW. CARMELA TOVAR PA IN TO SEE PT. DRESSING CHANGE TO BE COMPLETED PRIOR TO TRANSFER. PT IS A/O X4, PAIN CONTROLLED WITH PO MEDS AT THIS TIME.
--- NOTE | 2021-05-28 11:18 | NUR ---
BLADDER SCAN SHOWS 602 MLS.
[2021-05-28 11:20] VITALS: BP 141/78; PULSE 72; TEMP 98.4
[2021-05-28] MEDS ORDERED: COUMADIN 5MG5 MG/TAB PO (14:04)
[2021-05-28] MEDS ORDERED: PACERONE400 MG PO (14:04)
[2021-05-28] MEDS ORDERED: NORCO 325 MG-51 TAB PO (14:04)
[2021-05-28] MEDS ORDERED: ROXICODONE 55 MG/TAB PO (14:05)
[2021-05-28] MEDS ORDERED: SODIUM BICARBO650 MG PO (14:05)
[2021-05-28] MEDS ORDERED: TYLENOL 500MG500 MG PO (14:05)
[2021-05-28] MEDS ORDERED: ANTACID 225 MG360 M1 PO (14:05)
[2021-05-28] MEDS ORDERED: PROTONIX20 MG PO (14:06)
[2021-05-28] MEDS ORDERED: MIRALAX PA17 GM/Dose PO (14:06)
[2021-05-28] MEDS ORDERED: NOVOLIN 70/30 710 ML SQ (14:06)
[2021-05-28] MEDS ORDERED: NOVLOG SQ (14:06)
--- NOTE | 2021-05-28 14:25 | NUR ---
Raegan, with [facility], reports that she is able to accept the patient. The patient is to discharge today, 05/28, to [facility]. No additional needs at this time.
--- NOTE | 2021-05-28 16:05 | NUR ---
REPORT TO KAREN LICEA. TRANSFERED PT TO ROOM 339 TO [facility]. DRESSING CHANGE COMPLETE. PER CARMELA TOVAR.
== END 2021-05-28 16:00 | DRG 854 ==
LOC: COL.ER 15:16 → SURG 18:27 → EDBEDREQ 18:44 → SURG 21:13
PROVIDERS: Emergency Medicine; Internal Medicine; Internal Medicine Nephrology; Nurse Practitioner Family; Orthopaedic Surgery; Physician Assistant; ADMIT Student in an Organized Health Care Education/Training Program
PROC: 02HV33Z Insertion of Infusion Device into Superior Vena Cava, Percutaneous Approach (ICD-10-PCS; 2021-05-16)
PROC: 5A2204Z Restoration of Cardiac Rhythm, Single (ICD-10-PCS; 2021-05-22)
PROC: 0Y6G0ZZ Detachment at Left Knee Region, Open Approach (ICD-10-PCS; principal; 2021-05-26 15:30)
DX: A41.9 Sepsis, unspecified organism (principal); N17.9 Acute kidney failure, unspecified; E87.2 Acidosis; E87.1 Hypo-osmolality and hyponatremia; L03.116 Cellulitis of left lower limb; M86.8X7 Other osteomyelitis, ankle and foot; R65.20 Severe sepsis without septic shock; E87.5 Hyperkalemia; D64.9 Anemia, unspecified; K59.00 Constipation, unspecified; E11.65 Type 2 diabetes mellitus with hyperglycemia; E11.69 Type 2 diabetes mellitus with other specified complication; E66.9 Obesity, unspecified; E87.6 Hypokalemia; D47.3 Essential (hemorrhagic) thrombocythemia; I48.0 Paroxysmal atrial fibrillation; M21.6X2 Other acquired deformities of left foot
CPT/HCPCS: 99223-AI; 99232-AI; 99233-AI; 99239; C1751; J0282; J0692; J1160; J1170; J1644; J1650; J1815; J1885; J2405; J2543; J2704; J3010; J3370; J7030; J7050; L1830; L4386

== ENCOUNTER 2021-05-28 16:15 | Inpatient (IN) | payer SELFPAY ==
[~2021-05-28] VITALS: Ht 162.6 cm; Wt 107.5 kg
[2021-05-28 16:00] VITALS: BP 153/66; PULSE 69; TEMP 98.4
[~2021-05-28 16:15] MED LIST changes: +ANTACID 225 MG360 M1 PO; +COUMADIN 5MG5 MG/TAB PO; +MIRALAX PA17 GM/Dose PO; +NORCO 325 MG-51 TAB PO; +NOVLOG SQ; +NOVOLIN 70/30 710 ML SQ; +PACERONE400 MG PO; +PROTONIX20 MG PO; +ROXICODONE 55 MG/TAB PO; +SODIUM BICARBO650 MG PO; +TYLENOL 500MG500 MG PO
--- NOTE | 2021-05-28 21:44 | NUR ---
Patient reported pain, and given PRN [place]. Dressing to left BKA CDI. Some swelling to area. Denies having questions, needs, or concerns. Seems excited to start therapy tomorrow and being very positive. Resting in bed with call light within reach.
[2021-05-29 03:55] VITALS: BP 149/61; PULSE 61; TEMP 97.9
--- NOTE | 2021-05-29 05:07 | NUR ---
Patient has received PRN [place], as well as scheduled APAP, and PRN Roxicodone for pain as requested. Has been assisted with repositioning in bed. Voices no questions, needs, or concerns at this time. Resting in bed with call light within reach.
--- NOTE | 2021-05-29 06:30 | NUR ---
Patient is resting in bed. Patient states her pain level is 8/10. This nurse brought her more pain medication. Patient also stated she was feeling nausea and dry heaving. Call light and bedside table are within reach. Will continue to monitor patient throughout shift.
[2021-05-29 07:25] LABS: INR 1.3 (0.8-3.0); PROTHROMBIN TIME 14.4 SECONDS (9.7-12.8)
--- NOTE | 2021-05-29 16:12 | NUR ---
SW met with the patient and her ex- (Gilbert) to complete intake, as the patient is new to [facility]. The patient lives in a first story apartment with her ex- in [place]. She reports independence with ADLs before hospitalization and does not have any DME. The patient does not have a PCP. She is self pay. This SW had set the patient up with Dr. Sin at the [facility] in prior to being admitted to [facility]. Financial Counseling had also been consulted and were going to complete a Medicaid application with the patient. SW to follow up with financial counseling. The patient receives her medications from [facility] in and she states that she was having a difficult time affording her meds. SW informed the patient how [facility] has a pharmacy and will provide prescription assistance. The patient verbalized understanding. The patient completed a DPOA-HC with this SW on the acute side. She designated her sister, Tiesha Estrella (ph#[phone]). The patient states that therapy has been rough, but she is making small improvements. SW to continue to follow.
--- NOTE | 2021-05-29 17:15 | NUR ---
This nurse contact Dr. Jj because patient's BG was 458 and was instructed to give patient a total of [address] Jj also instructed this nurse to tell patient it is important to eat properly. This nurse followed directions and spoke with patient about her dieting and eating properly. Patient insisted she only had two pieces of pizza and some wings. Patient instructed this nurse to throw away pizza and stated she will only eat the hospital food from now on.
[2021-05-29 18:21] VITALS: BP 145/72; PULSE 72; TEMP 98.5
--- NOTE | 2021-05-29 19:00 | NUR ---
2:1 ASSIST SIT TO STAND TO BSC. PT MORBIDLY OBESE. UNABLE TO PIVOT TRANSFER. PT NEEDED TOTAL HYGEINE TOILETING CARES. PT REFUSES LT BKA IMMOBILIZER. PT ABLE TO SIT UP AND LAY DOWN IN BED PER SELF. CALL LIGHT IN REACH.
--- NOTE | 2021-05-29 21:00 | NUR ---
UNABLE TO FLUSH RED PORT OF PICC LINE.
[2021-05-30 03:42] VITALS: BP 166/79; PULSE 72; TEMP 97.9
--- NOTE | 2021-05-30 05:31 | NUR ---
PT HAS HAD LARGE AMT OF BELCH[place]. DENIED NAUSEA. REPORTS LG AMT FLATUS TOO.
[2021-05-30 06:47] LABS: BASO % 0.6 % (0.0-2.0); EOS # 0.2 (0.0-0.7); EOS % 3.1 % (0-4.0); GRAN # 3.3 (1.4-6.5); GRAN % 60.1 % (42.2-75.2); LYMPH # 1.6 (1.2-3.4); LYMPH % 29.3 % (20.0-51.0); MEAN CELL VOLUME 90 fl (80.0-100.0); MEAN CORPUSCULAR HGB CONC 32 g/dl (33.0-37.0); MEAN PLATELET VOLUME 9.5 fl (7.4-10.4); MONO # 0.4 (0.1-0.6); MONO % 6.7 % (1.7-9.3); PLATELET COUNT 208 K/mm3 (130-400); RED BLOOD COUNT 3.14 M/mm3 (4.10-5.30); REDCELL DISTRIBUTION WIDTH-CV 14.3 % (11.5-14.5)
[2021-05-30 06:52] LABS: HEMATOCRIT 28.4 % (37.0-47.0); MEAN CORPUSCULAR HEMOGLOBIN 29 pg (27.0-31.0)
[2021-05-30 06:57] LABS: INR 1.2 (0.8-3.0); PROTHROMBIN TIME 13.8 SECONDS (9.7-12.8)
[2021-05-30 07:10] LABS: CALCIUM 8.8 mg/dL (8.4-10.2); CREATININE, serum 2.31 mg/dL (0.57-1.11); MAGNESIUM 2.1 mg/dL (1.6-2.6); POTASSIUM 4.6 mmol/L (3.5-4.5)
--- NOTE | 2021-05-30 08:29 | NUR ---
PATIENT ALERT AND ORIENTED X4. PATIENT SITTING UP IN BED EATING BREAKFAST. PATIENT HAS LEFT BKA. PATIENT IS ON ACCUCHECKS AND HAS PICC TO RIGHT UPPER ARM. RED IS NOT FLUSHING AND PURPLE IS SLOW. MARCIE NOTIFIED. PATIENT HAS REDNESS UNDER BREASTS AND SCRATCHES TO LEGS BILATERALLY. PATIENT REFUSES SCD AND IMMOBILIZER. PATIENT DENIES PAIN OR FURTHER NEEDS AT THIS TIME. PATIENT UP WITH OT NOW. CALL LIGHT WITHIN REACH. HEAD TO TOE ASSESSMENT COMPLETE.
[2021-05-30 16:25] VITALS: BP 152/80; PULSE 72; TEMP 98.6
--- NOTE | 2021-05-30 21:49 | NUR ---
PT COUGHING UP THICK PHELGM CAUSING NAUSEA. BUT BETTER NOW. ASSISTED TO BSC PER LIFT PER URINARY URGENCY. VOIDED LARGE AMT. ENC TO VOID MORE FREQUENTLY SO SHE CAN USE SLIDE BOARD TO TRANSFER AND W/O THE URGENCY. PT AGREED. CALL LIGHT IN REACH. BED ALARM NOT SET. PT SITS UP ON SIDE OF BED FREQUENTLY TO REPOSITION. USES GOOD SAFETY JUDGEMENT.
[2021-05-31 05:11] VITALS: BP 170/87; BP 173/87; PULSE 70; TEMP 97.9
--- NOTE | 2021-05-31 07:21 | NUR ---
Report received from VINAYAK John. Patient is sitting on side of bed and requesting to use the bedside toilet. Patient denies needing pain medication at this time. Call light and bedside table are within reach. Will continue to monitor patient throughout shift.
[2021-05-31 08:49] LABS: INR 1.4 (0.8-3.0)
--- NOTE | 2021-05-31 13:00 | NUR ---
Patient has completed all therapies for the day and is sitting in WC. Patient c/o of pain in shoulder 01/06 but denies pain meds at this time. Call light and bedside table are within reach.
[2021-05-31 18:30] VITALS: BP 165/73; PULSE 75; TEMP 98.4
--- NOTE | 2021-05-31 20:12 | NUR ---
PT SITTING ON SIDE OF BED. USES GOOD SAFETY JUDGEMENT. NO NEED NEEDS AT THIS TIME. WATCHING TV. ASSISTED TO BSC PER SLIDE BOARD JIM WELL. VOIDED WITHOUT DIFFICULTY. BACK TO BED.
[2021-06-01 05:47] VITALS: BP 156/78; PULSE 71; TEMP 97.9
--- NOTE | 2021-06-01 06:42 | NUR ---
Report received from VINAYAK John. Patient is sleeping in bed. Call light and bedside table are within reach. Will continue to monitor patient throughout shift.
[2021-06-01 07:30] LABS: INR 1.4 (0.8-3.0); PROTHROMBIN TIME 15.7 SECONDS (9.7-12.8)
--- NOTE | 2021-06-01 10:15 | NUR ---
Patient's exhusband is at bedside. Patient denies pain at this time. Call light and bedside table are within reach.
[2021-06-01 17:47] VITALS: BP 147/68; PULSE 70; TEMP 98.3
--- NOTE | 2021-06-01 20:41 | NUR ---
ATTEMPTED TO FLUSH PICC LINE. BOTH PORTS OCCLUDED.
--- NOTE | 2021-06-01 21:04 | NUR ---
PT SITTING ON EDGE OF BED. HAS GOOD SAFETY JUDGEMENT. HAS BEEN HAVING LARGE AMT BELCHING FOR SEVERAL DAYS. TAKES PILLS SLOWLY. NO CHOKING. CALL LIGHT IN REACH.
[2021-06-02 05:32] VITALS: BP 152/71; PULSE 67; TEMP 98.2
--- NOTE | 2021-06-02 08:30 | NUR ---
Assessment completed, alert/oriented, vital signs stable, reports gerneralized aches/ soreness from therapies, left BKA/ stump dressing C/D/I, PICC to right arm / both lumens 100% occluded and will discuss PICC removal with as we are not using for any IV therapy at this time, AIVS is notified as well, patient ate good breafkast and now working with PT
[2021-06-02 10:12] LABS: INR 1.7 (0.8-3.0); PROTHROMBIN TIME 18.5 SECONDS (9.7-12.8)
--- NOTE | 2021-06-02 15:42 | NUR ---
Therapist reached out to me regarding the need for DME. Upon dc, patient will need a bariatric bed, slide board, tub transfer bench, and WC. Patient will also need to be set up with HH services. This social problems specialist reached out to the financial conselor who states that they have completed a FAA with the patient and have set her up an interview with SS for 06/18.
--- NOTE | 2021-06-02 16:00 | NUR ---
Admission QIM scores were reviewed by the team. Code of 4 chosen for oral hygiene was determined by team discussion to be the most usual performance before interventions for this patient during the assessment period. Code of 1 chosen for toilet hygiene was determined by team discussion to be the most usual performance for this patient during the assessment period. Code of 1 chosen for toileting transfers was determined by team discussion to be the most usual performance for this patient during the assessment period. Code of 4 chosen for upper body dressing was determined by team discussion to be the most usual performance for this patient during the assessment period. Code of 2 chosen for lower body dressing was determined by team discussion to be the most usual performance for this patient during the assessment period. Code of 3 chosen for rolling left to right was determined by team discussion to be the most usual performance before interventions for this patient during the assessment period. Code of 3 chosen for sit to lying was determined by team discussion to be the most usual performance for this patient during the assessment period. Code of 3 chosen for lying to sitting on side of bed was determined by team discussion to be the most usual performance for this patient during the assessment period. Code of 88 for sit to stand was determined by team discussion to be the most usual performance for this patient during the assessment period. Code of 1 for chair/bed to chair transfers was determined by team discussion to be the most usual performance for this patient during the assessment period.--PD Annabella
[2021-06-02 18:05] VITALS: BP 140/71; PULSE 66; TEMP 98
--- NOTE | 2021-06-02 22:00 | NUR ---
ALERT AND OX4. RATING PAIN 02/06. OXYCODONE GIVEN ALONG W PM MEDS. DENIES SOA, CHEST PAIN OR DIZZY. POC DISCUSSED. CALL LIGHT WI REACH. REPOSITIONED IN BED. BED IN LOW POSTION. NEEDS MET.
--- NOTE | 2021-06-03 04:27 | NUR ---
RESTED THOUGH THE NIGHT WITHOUT INCIDENT. NEEDS ARE MET. CALL LIGHT WI REACH.
[2021-06-03 04:38] VITALS: BP 151/83; PULSE 71; TEMP 98.2
[2021-06-03 06:41] LABS: INR 1.8 (0.8-3.0); PROTHROMBIN TIME 20.2 SECONDS (9.7-12.8)
--- NOTE | 2021-06-03 15:15 | NUR ---
BETSY met with the patient to discuss setting up a patient/family meeting. The patient states that she would like to have her ex-, Gilbert (ph#[phone]), apart of the meeting and that he would be available by phone. The patient states that Gilbert works until 1814 today and that he may not be able to get in contact with until after work. The patient plans to message Gilbert about setting up a meeting for tomorrow. SW attempted to contact Gilbert. BETSY left him a voicemail.
[2021-06-03 16:00] VITALS: BP 165/86; PULSE 67; TEMP 98.4
--- NOTE | 2021-06-03 18:10 | NUR ---
Pt has had uneventful day. Pt has been having episodes of liquid stool X3 today. Pt is independent and has been transferring with heavy 1-2 assist. The patient denies any pain, just some discomfort. No other concerns at this time. Will report to night shift manager RN.
--- NOTE | 2021-06-03 22:06 | NUR ---
ALERT AND OX4. DENIES SOA, CHEST PAIN OR DIZZY.HAS UPSET STOMACH TONIGHT W LOOSE STOOLS DUE TO SPICE SHE ATE AT DINNER. PM MEDS GIVEN ALONG W PRN OXY FOR PAIN. POC DISCUSSED. CALL LIGHT WI REACH. NEED MET.
[2021-06-04 05:19] VITALS: BP 140/79; PULSE 99; TEMP 98.6
--- NOTE | 2021-06-04 05:43 | NUR ---
Rested through the night without incident. Needs met. Call light wi reach. AM meds given. Denies need for pain med.
--- NOTE | 2021-06-04 06:57 | NUR ---
Report received from VINAYAK Cherry. Patient is sleeping in bed. Call light and bedside table are within reach. Will continue to monitor patient throughout shift.
--- NOTE | 2021-06-04 07:00 | NUR ---
Patient c/o sitting on the toilet so long she became numb. This nurse spoke with DEVAUGHN Leija and asked if the thought it would be safe for her to move from bed to commode without assistance. Patient is very cognitive of her abilities and when this nurse spoke to her about feeling comfortable about moving she agreed but with the understanding if she got stuck or felt unsafe to transfer to stop and call the staff. Patient acknowledged. Patient self-transferred later with no incident. Will continue to monitor patient throughout shift.
[2021-06-04 07:34] LABS: INR 2.1 (0.8-3.0); PROTHROMBIN TIME 23.4 SECONDS (9.7-12.8)
[2021-06-04 15:52] VITALS: BP 149/61; PULSE 71; TEMP 98.4
--- NOTE | 2021-06-04 16:07 | NUR ---
BETSY attempted to contact the patient's ex- again to set up a patient/family meeting. His phone goes straight to [facility]. BETSY then met with the patient to present and review the IPR Team Conference Note. The team has not set a discharge date yet. They plan to re-evaluate her next Wednesday and will recommend outpatient PT/OT upon discharge. They are recommending a wheelchair and sliding board to be ordered by SW. They also recommend a tub transfer bench and a bariatric dropside commode. The patient is self pay. BETSY informed the patient how we can order the wheelchair and sliding board from [facility], since she is self pay. The patient was agreeable to this. The patient reports that her friend has and is working on getting the tub transfer bench and commode. IPR Director, Raegan, then entered the phone. The patient had informed Raegan earlier that she is needing assistance with food and utilities. Her electricity was turned off. BETSY answered all questions. The patient reports that today was rough and she is tired. BETSY to provide the patient with local resources to assist with food and utilities. BETSY also followed up with Dinora from [employer]. Dinora reports that the FAA was completed and that they will follow up with the patient on the Medicaid application.
--- NOTE | 2021-06-04 21:00 | NUR ---
PT HAS BEEN TRANSFERRING SELF TO AND FROM [facility] WITH SLIDE BOARD PER SELF. NO NEEDS AT THIS TIME. CALL LIGHT IN REACH. BED ALARM OFF. PT HAS GOOD SAFETY JUDGEMENT. SITS ON SIDE OF BED FREQUENTLY PER SELF. CALL LIGHT IN REACH.
[2021-06-05 04:11] VITALS: BP 147/78; PULSE 79; TEMP 98
--- NOTE | 2021-06-05 06:46 | NUR ---
Report received by VINAYAK John. Patient is sleeping in bed. Call light and bedside table are within reach. Will continue to monitor patient throughout shift.
[2021-06-05 08:00] LABS: INR 2.2 (0.8-3.0); PROTHROMBIN TIME 24.3 SECONDS (9.7-12.8)
--- NOTE | 2021-06-05 15:00 | NUR ---
Patient has completed all therapies for the day and is resting comfortably in bed. Call light and bedside table are within reach.
--- NOTE | 2021-06-05 17:06 | NUR ---
BETSY met with the patient and provided her with the [facility] Resource Guide and informed her of who to contact for utility assistance. The patient verbalized understanding. BETSY faxed and emailed the wheelchair and slide board order, along with her FAA to Coleen at [facility].
[2021-06-05 17:52] VITALS: BP 132/67; PULSE 75; TEMP 98.5
[2021-06-06 04:28] VITALS: BP 145/80; PULSE 82; TEMP 98.8
--- NOTE | 2021-06-06 08:00 | NUR ---
PATIENT IS A&O. VSS. REPORTS PAIN IS WELL MANAGED AT THIS TIME. LEFT BKA DRESSING IS CD&I. PATIENT GOING DOWN TO THERAPY. AM MEDS GIVEN IN THERAPY. HEAD TO TOE ASSESSMENT COMPLETE. NO OTHER NEEDS AT THIS TIME.
--- NOTE | 2021-06-06 11:50 | NUR ---
SW contacted the patient's sister, Tiesha, to update and discuss attending a patient/family meeting for the patient. Tiesha reports that she is at work now and busy. She states that she will contact this SW back at a later time.
[2021-06-06 18:11] VITALS: BP 139/77; PULSE 73; TEMP 98.6
--- NOTE | 2021-06-06 18:55 | NUR ---
RECEIVED CHANGE OF SHIFT REPORT FROM DAY SHIFT NURSE. PATIENT RESTING IN BED DURING REPORT, DENIES ANY NEEDS OR CONCERNS. CALL LIGHT WITHIN REACH.
[2021-06-07 05:16] VITALS: BP 140/69; PULSE 72; TEMP 99.1
--- NOTE | 2021-06-07 07:13 | NUR ---
CHANGE OF SHIFT REPORT GIVEN TO DAY SHIFT NURSE, LOBO LICEA.
[2021-06-07 16:06] VITALS: BP 100/68; PULSE 73; TEMP 98.8
--- NOTE | 2021-06-07 19:14 | NUR ---
RECEIVED CHANGE OF SHIFT REPORT FROM DAY SHIFT NURSE. CALL LIGHT WITHIN REACH. DENIES ANY NEEDS AT TIME OF REPORT.
[2021-06-08 06:07] VITALS: BP 151/78; PULSE 84; TEMP 98.5
--- NOTE | 2021-06-08 07:32 | NUR ---
CHANGE OF SHIFT REPORT GIVEN TO DAY SHIFT NURSE, LOBO LICEA.
[2021-06-08 16:59] VITALS: BP 167/91; PULSE 79; TEMP 99.4
[2021-06-09 05:16] VITALS: BP 143/65; PULSE 79; TEMP 98.4
--- NOTE | 2021-06-09 06:45 | NUR ---
Report recieved from night nurse. Patient is up and sitting on side of bed. Patient c/o itching from dressing on amputee and stated it did not start until her dressing change. Patient denies pain at this time. Call light and bedside table are within reach. Will contimue to monitor patient throughout shift.
[2021-06-09 07:39] LABS: INR 2.4 (0.8-3.0); PROTHROMBIN TIME 27.1 SECONDS (9.7-12.8)
[2021-06-09 12:41] LABS: CALCIUM 8.8 mg/dL (8.4-10.2); CREATININE, serum 1.09 mg/dL (0.57-1.11); POTASSIUM 3.9 mmol/L (3.5-4.5)
--- NOTE | 2021-06-09 15:36 | NUR ---
Patient has completed all therapies and is resting in bed. Call light and bedside table are within reach.
[2021-06-09 18:02] VITALS: BP 129/63; PULSE 92; TEMP 98.2
[2021-06-10 05:29] VITALS: BP 148/73; PULSE 80; TEMP 98.2
--- NOTE | 2021-06-10 10:55 | NUR ---
BETSY contacted the patient's sister, Tiesha, to follow up about the patient/family meeting. Tiesha requests that SW not contact her again while she is at work. Willian states that she plans on being at the hospital at 1300 tomorrow for the meeting. BETSY to update IPR Director.
--- NOTE | 2021-06-10 14:34 | NUR ---
Raegan, IPR Director, informed BETSY that the patient's landlord is working on installing a wheelchair ramp, but that it will not be done by the time she discharges. Raegan suggested the idea of renting a ramp through [facility]. BETSY contacted Coleen at [facility]. Coleen reports that they have a 7 ft. ramp at $70 a month to rent and a 12 ft. ramp at $120 a month to rent. BETSY collaborated with Heladio from . The patient has only one step to get into her apartment and the 7 ft ramp will be sufficient. BETSY contacted and faxed and emailed the ramp order to Coleen at [facility]. Plan is to utilize the [facility] for the ramp.
[2021-06-10 18:14] VITALS: BP 125/71; PULSE 78; TEMP 97.6
--- NOTE | 2021-06-10 20:25 | NUR ---
Patient assessed at this time. Alert and oriented x 4, and able to make needs known. Denies SOB and dyspnea. LS CTA. HRR.Capillary refill less than 3 seconds. Non-tenting skin turgor. BSAx4. Abdomen soft and non-tender. Complained of pain to RLE, and given scheduled APAP. Dressing to LBKA surgical site is CDI. In bed with call light within reach.
[2021-06-11 05:34] VITALS: BP 148/73; PULSE 79; TEMP 98.3
--- NOTE | 2021-06-11 05:43 | NUR ---
Patient received scheduled APAP last night, but did not want it this morning. Denies pain and discomfort at this time. Voices no questions, needs, or concerns at this time. Resting in bed with call light within reach.
[2021-06-11 07:15] LABS: INR 2.5 (0.8-3.0)
--- NOTE | 2021-06-11 08:42 | NUR ---
BETSY contacted Agustin, financial counselor, to follow up on the Medicaid application. Agustin reports that they have completed a Medicaid application with the patient and just need to submit it now.
--- NOTE | 2021-06-11 15:49 | NUR ---
BETSY attended the patient/family meeting. The patient's sister, Tiesha, was at bedside. Also present was IPR Director, PT, and OT. IPR Director started by explaining the purpose of the meeting. PT/OT then discussed the patient's progress so far. A tentative discharge date has been set for this Wednesday, 06/13, with outpatient PT/OT. The patient and her sister are in agreement to the plan. The team answered all questions. BETSY then followed up with the patient and her sister and presented the IPR Team Conference Note. SW updated them about the patient's equipment. Due to the patient being self pay, outpatient PT/OT will need to be set up at a [facility] clinic. The patient was in agreement to this and getting set up at the clinic on [address]. The patient reports that her friend is working on getting her a tub transfer bench. She states that she will let SW know if her friend is unable to obtain one. BETSY contacted [facility] in and secured the patient an appointment with Dr. Sin on 06/16 at 1400 for primary care. BETSY contacted [facility] on [address] and secured the patient an outpatient OT appointment on 06/16 at 0930 and a PT appointment on 06/18 at 1545. BETSY will need to fax the patient's records and orders to [facility] and [facility]. BETSY provided the patient's RN with the appointment times. BETSY contacted Coleen at [facility] to follow up on the home equipment. Coleen reports that they will deliver the wheelchair and slideboard to the patient's room on Wednesday. She reports that it would be better to go through [facility] to pay for the ramp. BETSY collaborated with Latonya from the [employer]. The first month's rent for the ramp was payed for through the [employer]. Coleen reports that they do not have a tech on Wednesday to deliver the ramp then and she inquired about having it delivered tomorrow. BETSY provided Coleen with the patient's room and cell phone to call to coordinate a time to deliver the ramp. SW to continue to follow.
[2021-06-11 16:28] VITALS: BP 125/68; PULSE 84; TEMP 98.7
--- NOTE | 2021-06-11 18:31 | NUR ---
RECEIVED CHANGE OF SHIFT REPORT FROM DAY SHIFT NURSE.
--- NOTE | 2021-06-11 18:45 | NUR ---
PATIENT RESTING IN BED DURING REPORT, DENIED ANY NEEDS AT THAT TIME. CALL LIGHT WITHIN REACH. UP IN ROOM INDEPENDENTLY.
[2021-06-12 05:15] VITALS: BP 147/66; PULSE 80; TEMP 99
--- NOTE | 2021-06-12 07:17 | NUR ---
CHANGE OF SHIFT REPORT GIVEN TO DAY SHIFT NURSE, KAREN LICEA.
--- NOTE | 2021-06-12 07:19 | NUR ---
Received report from VINAYAK Powers. Patient is up and sitting on the side on the bed. Patient denies pain at this time. Call light and bedside table are within reach. Will continue to monitor patient throughout shift.
[2021-06-12] MEDS ORDERED: COUMADIN 5MG5 MG/TAB PO (14:37)
[2021-06-12] MEDS ORDERED: TYLENOL 325MG325 MG PO (14:43)
--- NOTE | 2021-06-12 14:45 | NUR ---
Patient has completed all therapies for the day and is resting in bed. Patient denies pain at this time. Call light and bedside table are within reach.
[2021-06-12] MEDS ORDERED: NOVOLIN 70/30 710 ML SQ (14:49)
[2021-06-12] MEDS ORDERED: INSULIN SYRING1 EA11 SQ (14:54)
[2021-06-12] MEDS ORDERED: FREESTYLE PREC1 EAC5 MC (14:55)
[2021-06-12] MEDS ORDERED: LANCETS MC (14:57)
[2021-06-12] MEDS ORDERED: BD ALCOHOL1 SWA TP (14:58)
[2021-06-12] MEDS ORDERED: PACERONE400 MG PO (14:59)
[2021-06-12] MEDS ORDERED: PROTONIX20 MG PO (15:44)
[2021-06-12] MEDS ORDERED: TYLENOL 500MG500 MG PO (15:45)
--- NOTE | 2021-06-12 15:47 | NUR ---
Per ADELA Zapata, the nursing staff needs to start educating patient on how to do BS and administer insulin herself starting with the next BS check and insuling dosing so she will know how to do it prior to discharge.
[2021-06-12 16:12] VITALS: BP 139/65; PULSE 78; TEMP 98.4
--- NOTE | 2021-06-12 16:32 | NUR ---
BETSY contacted Coleen, at [facility], to follow up about the ramp. Coleen reports that their tech already delivered and set up the ramp at the patient's apartment today. She states that they will deliver the wheelchair and slideboard to the patient's room tomorrow. The PA notified BETSY that the patient is going to have new prescriptions upon discharge. The patient is self pay and will need prescription assistance. BETSY asked the PA to have the patient's scripts sent to [facility] for a med voucher. BETSY met with the patient to update. She was agreeable to this.
--- NOTE | 2021-06-12 20:57 | NUR ---
PT RESTING IN BED. WATCHING TV. C/O GENERALIZED MUSCLE ACHES. SEE MAR FOR ES TYLENOL GIVEN PER SCHEDULE. CALL LIGHT IN REACH. MOD I IN ROOM.
[2021-06-13 05:25] VITALS: BP 134/61; PULSE 79; TEMP 98.3
[2021-06-13 07:01] LABS: INR 2.6 (0.8-3.0)
[2021-06-13 07:04] LABS: CALCIUM 9.5 mg/dL (8.4-10.2); CREATININE, serum 0.91 mg/dL (0.57-1.11); POTASSIUM 4.2 mmol/L (3.5-4.5)
[2021-06-13] MEDS ORDERED: SODIUM BICARBO650 MG PO (07:35)
--- NOTE | 2021-06-13 08:00 | NUR ---
PATIENT IS A&O. VSS. DENIES ANY COMPLAINTS. PATIENT UP IN BEDSIDE CHAIR WITH BREAKFAST TRAY. NO C/O N/V. AM MEDS GIVEN. HEAD TO TOE ASSESSMENT WNL, SEE CHARTING. PATIENT HOPING TO DISCHARGE HOME LATER TODAY.
--- NOTE | 2021-06-13 14:09 | NUR ---
BETSY met with the patient to follow up about the tub transfer bench and drop arm commode. The patient reports that her friend was able to get the tub transfer bench, but not the drop arm commode. BETSY contacted [facility] and [facility] to inquire if they have that commode. They both report that they do not. BETSY contacted Rupinder at [facility] and she reports that they do. They are around $60-$80. BETSY collaborated with Latonya from the [facility]. The [facility], [place] payed for the drop arm commode and the patient and/or sister will just need to pick it up. BETSY met with the patient to review the above. The patient reports that her and her sister will be able to slate picker the commode from [facility] on their way home from the hospital today. BETSY notified and faxed the med voucher to [facility]. [facility] delivered the wheelchair and slideboard to her room. The patient had no other questions or concerns for BETSY. The patient is to discharge back home today, 06/13, with outpatient PT/OT from [facility] on [address]. BETSY faxed the patient's orders to [facility]. BETSY faxed the patient's records and orders to Fanny in [place]. No additional needs at this time.
--- NOTE | 2021-06-13 16:38 | NUR ---
PATIENT'S RIDE IS HERE AND DISCHARGING HOME. GAVE DISCHARGE CHARGE INSTRUCTIONS, E-SCRIPTS SENT, AND DISCUSSED F/U APT. ANSWERED QUESTIONG/CONCERNS. NO IV SITE. PATIENT IS DRESSED, PACKED AND DISCHARGED.
--- NOTE | 2021-06-17 09:27 | NUR ---
BETSY received a phone call from the patient. The patient reports that her 22 inch wheelchair is too big for her apartment and she has been unable to manuever around her apartment. She reports that she has been transferring using a rolling chair and has already had two falls. She reports that she has called Narciso at [facility] and they discussed getting a rollator. The patient reports that her electricity has not been turned on either and that there are no lights and that it is getting colder in her apartment. BETSY staffed with IPR Director. A smaller wheelchair would be recommended over a rollator. BETSY contacted Narciso at [facility]. Narciso report that they will deliver a 20 inch wheelchair to the patient's apartment today. BETSY attempted to contact the patient back to update. The patient's sister, Tiesha, answered. Tiesha was upset BETSY contacted her at work and says she cannot talk at work and hung up. BETSY made an APS report. Intake ID#[id number].
== END 2021-06-13 16:35 | disposition home or self-care (01) | DRG 559 ==
PROVIDERS: Physician Assistant; ADMIT Internal Medicine
DX: Z47.81 Encounter for orthopedic aftercare following surgical amputation (principal); A41.9 Sepsis, unspecified organism; R65.20 Severe sepsis without septic shock; N17.9 Acute kidney failure, unspecified; Z68.45 Body mass index [BMI] 70 or greater, adult; E87.1 Hypo-osmolality and hyponatremia; Z89.512 Acquired absence of left leg below knee; D64.9 Anemia, unspecified; E87.5 Hyperkalemia; R53.81 Other malaise; K59.00 Constipation, unspecified; E66.9 Obesity, unspecified; E11.65 Type 2 diabetes mellitus with hyperglycemia; I48.91 Unspecified atrial fibrillation; R26.89 Other abnormalities of gait and mobility; Z73.6 Limitation of activities due to disability; Z79.01 Long term (current) use of anticoagulants; Z79.4 Long term (current) use of insulin; Z79.891 Long term (current) use of opiate analgesic; Z79.899 Other long term (current) drug therapy
CPT/HCPCS: 99222-AI; 99232-AI; 99239; J1815

== ENCOUNTER 2021-06-18 15:50 | Outpatient (RCR) | payer SELFPAY ==
[~2021-06-18 15:50] MED LIST changes: +BD ALCOHOL1 SWA TP; +FREESTYLE PREC1 EAC5 MC; +INSULIN SYRING1 EA11 SQ; +LANCETS MC; +TYLENOL 325MG325 MG PO
== END 2021-06-26 15:20 | disposition home or self-care (01) ==
LOC: WSPT 15:50
DX: E87.2 Acidosis (principal); Z79.01 Long term (current) use of anticoagulants

== ENCOUNTER 2022-10-08 15:44 | Emergency (ER) | payer MEDICAID ==
[~2022-10-08] VITALS: Ht 162.6 cm; Wt 108.6 kg
[2022-10-08 15:55] VITALS: TEMP 98.1
[2022-10-08 16:53] LABS: BASO % 0.5 % (0.0-2.0); EOS # 0.1 K/mm3 (0.0-0.7); EOS % 1.4 % (0.0-4.0); GRAN # 5.2 K/mm3 (1.4-6.5); GRAN % 66.7 % (42.2-75.2); HEMATOCRIT 40.4 % (37.0-47.0); HEMOGLOBIN 13.3 g/dl (12.5-16.0); LYMPH % 26.3 % (20.0-51.0); MEAN CELL VOLUME 89 fl (80.0-100.0); MEAN CORPUSCULAR HEMOGLOBIN 29 pg (27-31); MEAN CORPUSCULAR HGB CONC 33 g/dl (33.0-37.0); MEAN PLATELET VOLUME 11.2 fl (7.4-10.4); MONO # 0.4 K/mm3 (0.1-0.6); MONO % 4.8 % (1.7-9.3); PLATELET COUNT 243 K/mm3 (130-400); RED BLOOD COUNT 4.55 M/mm3 (4.10-5.30); REDCELL DISTRIBUTION WIDTH-CV 13.2 % (11.5-14.5)
[2022-10-08 17:18] LABS: ALBUMIN 2.9 gm/dL (3.5-5.0); BILIRUBIN,TOTAL 0.2 mg/dL (0.2-1.2); CALCIUM 9.2 mg/dL (8.4-10.2); CREATININE, serum 0.82 mg/dL (0.57-1.11); POTASSIUM 4.1 mmol/L (3.5-4.5); TOTAL PROTEIN 6.9 gm/dL (6.2-8.1)
[2022-10-08] MEDS ORDERED: AMOXICILLIN 8751 TAB PO (19:02)
[2022-10-08 19:14] VITALS: BP 132/98; PULSE 88
== END 2022-10-08 19:32 | disposition home or self-care (01) ==
LOC: COL.ER 15:44
PROVIDERS: Physician Assistant
DX: L03.311 Cellulitis of abdominal wall (principal); E11.65 Type 2 diabetes mellitus with hyperglycemia; I10 Essential (primary) hypertension; E66.01 Morbid (severe) obesity due to excess calories; Z68.41 Body mass index [BMI] 40.0-44.9, adult; Z79.4 Long term (current) use of insulin
CPT/HCPCS: J1815; J7030